=== PATIENT | female | born 1950 | race Native Hawaiian/Other Pacific Islander ===

== ENCOUNTER 2017-04-10 13:22 | Outpatient (CLI) | payer OTHER, MEDICARE ==
[~2017-04-10] VITALS: Ht 152.4 cm; Wt 47.6 kg
[~2017-04-10 13:22] MED LIST: ADDERALL10 MG OR; ADDERALL10 MG PO; B12-ACTIVE1 MG IM; BUPR1SUBFM SL; CELE200C2 PO; INSUINJ20 SC; KETOROLAC15 MG/ML IJ; LEVO0.117 PO; METO25TA4 OR; NEXIUM40 M1 OR; PHENELX32 PO; PROM25TA52 PO; ROBAXIN500 MG PO; TRAM50TA PO
[2017-04-10 14:25] VITALS: BP 133/61; TEMP 97.9
== END 2017-04-10 15:10 | disposition home or self-care (01) ==
LOC: MAMMO 13:22 → INF 13:22
DX: Z12.31 Encounter for screening mammogram for malignant neoplasm of breast (principal); M81.0 Age-related osteoporosis without current pathological fracture
CPT/HCPCS: 36415; 82310; 96372; G0202-TC; J0897

== ENCOUNTER 2017-10-16 11:11 | Outpatient (CLI) | payer OTHER, MEDICARE ==
[~2017-10-16] VITALS: Ht 152.4 cm; Wt 47.6 kg
[2017-10-16 11:20] VITALS: BP 138/67; TEMP 98.5
== END 2017-10-16 12:00 | disposition home or self-care (01) ==
LOC: INF 11:11
DX: M81.0 Age-related osteoporosis without current pathological fracture (principal)
CPT/HCPCS: 36415; 82310; J0897

== ENCOUNTER 2018-05-02 13:32 | Outpatient (CLI) | payer OTHER, MEDICARE ==
[~2018-05-02] VITALS: Ht 154.9 cm; Wt 49.9 kg
== END 2018-05-02 14:45 | disposition home or self-care (01) ==
LOC: INF 13:32
DX: M81.0 Age-related osteoporosis without current pathological fracture (principal)
CPT/HCPCS: 82310; 96372; J0897

== ENCOUNTER 2018-05-03 02:59 | Emergency (ER) | payer OTHER, MEDICARE ==
[~2018-05-03] VITALS: Ht 157.5 cm; Wt 50.8 kg
[2018-05-03 03:25] LABS: PLATELET COUNT 195 K/uL (152-353)
[2018-05-03 03:31] LABS: POTASSIUM 3.6 mmol/L (3.6-5.2)
[2018-05-03 04:29] VITALS: BP 125/56; TEMP 98.4
== END 2018-05-03 04:31 | disposition home or self-care (01) ==
LOC: ED 02:59
DX: K52.89 Other specified noninfective gastroenteritis and colitis (principal)
CPT/HCPCS: 36415; 80053; 81000; 85027; 87077; 87086; 87088; 87186; 93005; 99283

== ENCOUNTER 2018-06-14 15:26 | Outpatient (CLI) | payer OTHER, MEDICARE ==
[2018-06-14 16:18] LABS: PLATELET COUNT 246 K/uL (152-353)
[2018-06-14 16:20] LABS: PARTIAL THROMBOPLASTIN TIME 24.5 SECONDS (24.5-33.6)
[2018-06-14 16:21] LABS: POTASSIUM 4.3 mmol/L (3.6-5.2)
[2018-09-17] MEDS ORDERED: GABA300C2 PO (18:17)
[2018-09-17] MEDS ORDERED: DIAZ5TAB20 PO (18:19)
[2018-09-17] MEDS ORDERED: GRALISE300 MG (18:20)
[2018-09-17] MEDS ORDERED: LEVO0.0723 PO (18:24)
[2018-09-17] MEDS ORDERED: BUPR1SUBFM SL (18:27)
== END 2018-06-14 19:49 | disposition home or self-care (01) ==
LOC: LABW 15:26
PROVIDERS: Orthopaedic Surgery
DX: M54.6 Pain in thoracic spine (principal); M96.1 Postlaminectomy syndrome, not elsewhere classified; Z01.812 Encounter for preprocedural laboratory examination; Z01.810 Encounter for preprocedural cardiovascular examination; Z01.811 Encounter for preprocedural respiratory examination; R79.1 Abnormal coagulation profile
CPT/HCPCS: 36415; 80048; 81000; 85027; 85610; 85730; 87070; 87077; 87185; 87186; 93005

== ENCOUNTER 2018-09-24 17:17 | Outpatient (CLI) | payer OTHER, MEDICARE ==
[~2018-09-24 17:17] MED LIST changes: +DIAZ5TAB20 PO; +GABA300C2 PO; +GRALISE300 MG; +LEVO0.0723 PO
== END 2018-09-24 22:09 | disposition home or self-care (01) ==
LOC: RAD 17:17
DX: K59.09 Other constipation (principal)
CPT/HCPCS: 74022

== ENCOUNTER 2018-10-05 22:06 | Emergency (ER) | payer OTHER, MEDICARE ==
[~2018-10-05] VITALS: Ht 157.5 cm; Wt 45.4 kg
[2018-10-06 00:10] LABS: PLATELET COUNT 458 K/uL (152-353)
[2018-10-06 00:16] LABS: POTASSIUM 4.1 mmol/L (3.6-5.2)
[2018-10-06 03:22] VITALS: BP 137/92; TEMP 98.2
== END 2018-10-06 03:26 | disposition short-term general hospital (02) ==
LOC: ED 22:06
PROC: 0BH17EZ Insertion of Endotracheal Airway into Trachea, Via Natural or Artificial Opening (ICD-10-PCS; principal; 2018-10-05)
DX: K56.699 Other intestinal obstruction unspecified as to partial versus complete obstruction (principal); J18.0 Bronchopneumonia, unspecified organism
CPT/HCPCS: 36415; 43754; 74022; 80053; 80307; 81000; 82150; 83690; 85027; 96374; 96375; 96376; 99285; J2175; J2270

== ENCOUNTER 2018-10-06 03:25 | Outpatient (CLI) | payer OTHER, MEDICARE | END 2018-10-06 03:55 | disposition short-term general hospital (02) | LOC: AMB 03:25 | DX: K56.699 Other intestinal obstruction unspecified as to partial versus complete obstruction (principal); J18.0 Bronchopneumonia, unspecified organism | CPT/HCPCS: A0425; A0427 ==